=== PATIENT | female | born 1945 | race Caucasian/White ===

== ENCOUNTER → 2017-10-21 | Outpatient (CLI) | payer OTHER ==
[~2017-10-21] MED LIST: POLY119PG PO; SURFAK240 M1 PO; ULTRACET PO
== END | disposition home or self-care (01) ==
LOC: MRI 13:15
DX: H47.099 Other disorders of optic nerve, not elsewhere classified, unspecified eye (principal)
CPT/HCPCS: 70543; 70553; A9579